=== PATIENT | female | born 1990 ===

== ENCOUNTER 2018-08-25 12:50 | Emergency (ER) | payer MEDICAID ==
--- NOTE | 2018-08-25 13:22 | OBHP ---
Datetime: 08/25/2018 13:14 IP Adm Impression: , intrauterine IP Chief Complaint Other: spotign with wipng Admit Comment, IP Provider: @ 31+ wks c/o vaginal spottig x 1 this mornign with wiping, dneis n ay dysuria, rugency, contptiaon, ctx, lof, vb, +Fm, fever, chills, nause, voting cp, sob OB: p0 FURNACE HAND: dnies pMH: dnies PSH: dneis FH non contiboyr MEDS: PNVS ALLERgy; PCN SHX: negaitve etoh/tobacc/drug A/P @ 31+ wks with vaign sottign -pecium exam no blood, closed, no evide of laor -UA -nst -dc after rueslts -f/u pmd as schleud and outpaitent for urine culture results - labor pruecaitn givne Pelvic Type - PN: Adequate Extremities - PN: Normal Abdomen - PN: Normal Back - PN: Normal Breast - PN: Not Done Lungs - PN: Normal Heart - PN: Normal Thyroid - PN: Normal Neurologic - PN: Normal HEENT - PN: Normal General - PN: Normal Presentation-Admit: Vertex FHR - Baseline A Provider: 150 Membranes, Provider: Intact Contraction Comments Provider: irritalibty Comments, ACOG Physical Exam: Speculum exa; no gorss abnormal vagian;no blood no discharge cervid; clsoed, long , psteir uteurs; nont lexy anus/perienumgrossl ynormal Gestation - Est Wks by US: 34.0 Vital Signs Provider: Reviewed IP Chief Complaint: Other NICHD Variability Prov Fetus A: Moderate 6-25bpm FHR Category Provider Fetus A: Category I NICHD Decel Fetus A IP Provider: None Dilatation, Provider: 0 Effacement, Provider: 0 Station, Provider: -3 Genitourinary Exam: Normal DTRs - PN: Normal
[2018-08-25 14:15] LABS: SQUAMOUS EPITHIAL 9 /hpf (0-5); URINE BACTERIA RARE (<OCC); URINE BILIRUBIN NEGATIVE (NEGATIVE); URINE BLOOD 1+ (NEGATIVE); URINE CLARITY Hazy (Clear); URINE COLOR Yellow (YELLOW); URINE GLUCOSE (UA) NORMAL (Normal); URINE LEUKOCYTE ESTERASE 3+ Leu/uL (Negative); URINE PROTEIN NEGATIVE (NEGATIVE); URINE UROBILINOGEN NORMAL mg/dL (0.2-1.0)
[2018-08-25] MEDS ORDERED: Lactated Ringer's 1,000 ML IV ONE (14:55)
[2018-08-25 15:19] LABS: BASO % 0.2 % (0.0-2.0); EOS # 0.1 K/uL (0.0-0.7); EOS % 0.9 % (0.0-4.0); HEMOGLOBIN 10.9 g/dL (11.0-16.0); LYMPH # 1.7 K/uL (1.0-4.3); LYMPH % 18.5 % (20.0-40.0); MEAN CELL VOLUME 89.1 fL (81.0-99.0); MEAN CORPUSCULAR HEMOGLOBIN 31.1 pg (27.0-31.0); MEAN CORPUSCULAR HGB CONC 34.9 g/dL (33.0-37.0); MEAN PLATELET VOLUME 7.4 fL (7.2-11.7); MONO # 0.9 K/uL (0.0-0.8); MONO % 9.1 % (0.0-10.0); NEUT # 6.7 K/uL (1.8-7.0); NEUT % 71.3 % (50.0-75.0); RBC 3.49 Mil/uL (3.80-5.20); RED CELL DISTRIBUTION WIDTH 13.1 % (11.5-14.5); WHITE BLOOD COUNT 9.4 K/uL (4.8-10.8)
[2018-08-25 15:32] LABS: ALB/GLOB RATIO 1.1 (1.0-2.1); ALBUMIN 3.6 g/dL (3.5-5.0); ALT/SGPT 18 U/L (9-52); AST/SGOT 20 U/L (14-36); BLOOD UREA NITROGEN 5 mg/dL (7-17); CALCIUM 9.1 mg/dl (8.6-10.4); GFR NON-AFRICAN AMERICAN > 60
[2018-08-25 15:52] LABS: PROTHROMBIN TIME 10.4 SECONDS (9.7-12.2)
[2018-08-25] MEDS ORDERED: Betamethasone Soluspan 30 mg/5mL Inj Susp IM ONE (15:55)
--- NOTE | 2018-08-25 16:30 | OBPN ---
Datetime: 08/25/2018 13:14 Membranes, Provider: Intact Contraction Comments Provider: irritalibty FHR - Baseline A Provider: 150 Gestation - Est Wks by US: 34.0 Presentation-Admit: Vertex IP Progress Note Comment: pt reexamined reports osme pressure on and off, sri any lof, reports ble eidng has stopped, +FM pt pad reexamined wiht scan blodo on pad VS as above Sepculm Exam: Vagina; no blood, Cervix; Losed, no bleeding, Uteurs; Nont lexy EMF: Cat I ALYSSA: q 2-3 min Bedsie US; offical report pending Placneta appears to be fundal, posterior no previa lba reviwerd hb 10+ Rh postiive A/P @ 31.3 wks GA with vaginal bleeding cannot r/o ptl vs placenta abupartion -pt for celeston -Plan of care discussed with MFM Dr Guadarrama reocmmend magnesium sulfate and delivery if indicated does not reocmmend transfer at this point -plan of care dw paietn vs consdiering al[facility] level [facility] hospital given risk of posisble ptl a dn risks assoicated with her. Vital Signs Provider: Reviewed FHR Category Provider Fetus A: Category I NICHD Variability Prov Fetus A: Moderate 6-25bpm Dilatation, Provider: 0 Effacement, Provider: 0 Station, Provider: -3 NICHD Decel Fetus A IP Provider: None
[2018-08-25] MEDS ORDERED: Magnesium Sulfate 4 gm/100 ml 4 GM/100 ML BAG IVPB ONE ×2 (16:34→17:00)
[2018-08-25] MEDS ORDERED: Magnesium Sulfate 20 gm 20,000 MG/500 ML BAG IV ONE (17:11)
[2018-08-25] MEDS ORDERED: Magnesium Sulfate 20 gm 20 GM/500 ML BAG IV SCH ×2 (17:30→17:32)
[2018-08-25 23:36] LABS: BASO % 0.3 % (0.0-2.0); HEMOGLOBIN 11.4 g/dL (11.0-16.0); INR 0.9; LYMPH # 1.4 K/uL (1.0-4.3); LYMPH % 9.5 % (20.0-40.0); MEAN CELL VOLUME 90.2 fL (81.0-99.0); MEAN CORPUSCULAR HEMOGLOBIN 31.8 pg (27.0-31.0); MEAN CORPUSCULAR HGB CONC 35.2 g/dL (33.0-37.0); MEAN PLATELET VOLUME 7.6 fL (7.2-11.7); MONO # 0.2 K/uL (0.0-0.8); MONO % 1.1 % (0.0-10.0); NEUT # 12.8 K/uL (1.8-7.0); NEUT % 89.1 % (50.0-75.0); NRBC % 0.1 % (0.0-2.0); PLATELET COUNT 258 K/uL (130-400); PROTHROMBIN TIME 10.2 SECONDS (9.7-12.2); RBC 3.58 Mil/uL (3.80-5.20); WHITE BLOOD COUNT 14.3 K/uL (4.8-10.8)
[2018-08-26 01:17] LABS: LYMPHOCYTE 10 % (20-40); NEUTROPHIL 90 % (50-75); PLATELET ESTIMATE NORMAL (NORMAL); TOTAL CELLS COUNTED 100
[2018-08-26] MEDS ORDERED: Magnesium Sulfate 20 gm 20 GM/500 ML BAG IV SCH (03:51)
--- NOTE | 2018-08-26 04:11 | OBPN ---
Datetime: 08/26/2018 04:05 IP Progress Plan: Continue present management Membranes, Provider: Intact Contraction Comments Provider: q 8 min FHR - Baseline A Provider: 140 Gestation - Est Wks by US: 31.4 Presentation-Admit: Vertex IP Progress Note Comment: Pt seen adn examien mahnaz rperots feelign better with intermitent back dsic omfrt dnie sany vb, lof, +FM. pt dnie sany headache, blurry vison, ruq/epigats pain but preots soem b leedign form right gum that started spotnatneoy, dneis any pain, fever, diffilcty awallign. VSS PE see aobve A/P @ 31.4 wks GA with with vb and contraction cannot r/o plt vs placnta aburiton -s/p Labs serial Hb: erviwed, fibriogne reivwe -s/p celestone -Magnesium : level 5+, contininue ins/out, neuro check -cont gume oadn efm -analgesia prn -Obtain office US report -MFM consult Vital Signs Provider: Reviewed FHR Category Provider Fetus A: Category I NICHD Variability Prov Fetus A: Moderate 6-25bpm Dilatation, Provider: 0 NICHD Decel Fetus A IP Provider: None
[2018-08-26 05:22] LABS: BASO % 0.1 % (0.0-2.0); HEMOGLOBIN 11.2 g/dL (11.0-16.0); LYMPH # 1.4 K/uL (1.0-4.3); MEAN CELL VOLUME 89.1 fL (81.0-99.0); MEAN CORPUSCULAR HEMOGLOBIN 30.8 pg (27.0-31.0); MEAN CORPUSCULAR HGB CONC 34.6 g/dL (33.0-37.0); MEAN PLATELET VOLUME 7.7 fL (7.2-11.7); MONO # 0.3 K/uL (0.0-0.8); MONO % 2.1 % (0.0-10.0); NEUT # 12.4 K/uL (1.8-7.0); NEUT % 87.8 % (50.0-75.0); RBC 3.64 Mil/uL (3.80-5.20); RED CELL DISTRIBUTION WIDTH 13.4 % (11.5-14.5); WHITE BLOOD COUNT 14.1 K/uL (4.8-10.8)
--- NOTE | 2018-08-26 08:44 | OBDCSUM ---
Datetime: 08/26/2018 08:40 Discharged to, Provider: Home Follow up at, Provider: Dr Garzon Disch Instr Activity: Normal activity Disch Instr Diet: Regular Discharge Instructions, Provider: Specific instructions as noted Discharge Time: 08/26/2018 09:00 Follow up in weeks, Provider: 1 week Disch Referrals: None Disch Activity Restrictions: No exercising; No lifting; Minimize stair-climbing; No sexual activity; Nothing in vagina - [place], tampons, douche Discharge Comment, Provider: pt adivsed to go to [facility] office [address] estelita RIVERA for second dos e of yuri hernandez pian precuaitn givne. Discharge Diagnosis Prov Other: vaginal bleeidgn resolved
[2018-08-26 13:49] VITALS: BP 98/51; PULSE 82; RESP 18; TEMP 98.2; O2SAT 99
--- NOTE | 2018-08-26 14:00 | US ---
Indication: 31 weeks vaginal bleeding r/o abruption vs previa Comparison: None available Technique: Real-time ultrasound was performed through the pelvis. Findings: There is a single living fetus in cephalic presentation. Amniotic fluid volume is within normal limits. Posterior fundal placenta the placenta is not previa. There are no adnexal masses or cysts evident. Cervix length measures approximately 4.9 cm. Measurements and calculations: Fetus has a composite sonographic age of 32 weeks 3 days. This calculation is based on the biparietal diameter, head circumference, abdominal circumference, and femur length. Estimated heart rate 144 beats per min. Estimated weight 1944 g. Amniotic fluid index: 16.96 cm Biophysical profile: movements 2/2 breathing 2/2 tone 2/2 Amniotic fluid 2/2 Total score impression: 06/26 Impression: Single living fetus with a composite sonographic age of 32 weeks 3 days. Estimated heart rate 144 beats per min. Biophysical profile of 8 out of 8. The study was performed for the emergent evaluation of vaginal bleeding, and the whole anatomic survey of the fetus was not performed. This should be performed on an outpatient elective basis as clinically warranted. Preliminary impression was provided by [facility].
== END 2018-08-26 09:26 | disposition home or self-care (01) ==
LOC: C.EROB 12:50
DX: O26.853 Spotting complicating pregnancy, third trimester (principal); Z3A.34 34 weeks gestation of pregnancy
CPT/HCPCS: 76815; 76818; 80053; 81001; 83735; 85025; 85384; 85610; 85730; 86850; 86900; 86920; 87086; 96365; 96372; 99283; J0702; J3475; J7120

== ENCOUNTER 2018-08-26 16:22 | Emergency (ER) | payer MEDICAID ==
[2018-08-26] MEDS ORDERED: Betamethasone Soluspan 30 mg/5mL Inj Susp IM ONE (16:45)
--- NOTE | 2018-08-26 17:44 | OBHP ---
Datetime: 08/26/2018 17:24 IP Adm Impression: , intrauterine ; No Active Labor; Intact Membranes IP Admit Plan: Observation/Evaluation Pelvic Type - PN: Adequate Extremities - PN: Normal Abdomen - PN: Normal Back - PN: Normal Breast - PN: Not Done Lungs - PN: Normal Heart - PN: Normal Thyroid - PN: Normal Neurologic - PN: Normal HEENT - PN: Normal General - PN: Normal FHR - Baseline A Provider: 150 Membranes, Provider: Intact Contraction Comments Provider: 0 Comments, ACOG Physical Exam: SSE exam done and no active bleeding and only a very small dark brown residual discharge and probably from previously bleeding. EGA AdmitDate IP: 31.4 Vital Signs Provider: Reviewed; Within Normal Limits IP Chief Complaint: Vaginal bleeding NICHD Variability Prov Fetus A: Moderate 6-25bpm NICHD Accel Fetus A IP Provider: 10X10 NICHD Decel Fetus A IP Provider: None Dilatation, Provider: 0 Effacement, Provider: 0 Station, Provider: high Genitourinary Exam: Normal DTRs - PN: Normal Datetime: 08/26/2018 04:05 Presentation-Admit: Vertex Gestation - Est Wks by US: 31.4 Vital Signs Provider Details: GEN NAD AA ox 3 HEENT: NC/AT, right small clost on molar, no active bleeding RESP: CTAB?l CVS RRR< +S1/S2 ABS: soft, nt, no guaridng, no reboudn tendere, nor igidty VE: no gross blood, appears closed EXT: negative quincy's sign, negative calf tenderess FHR Category Provider Fetus A: Category I Datetime: 08/25/2018 13:14 Admit Comment, IP Provider: @ 31+ wks c/o vaginal spottig x 1 this mornign with wiping, dneis n ay dysuria, rugency, contptiaon, ctx, lof, vb, +Fm, fever, chills, nause, voting cp, sob OB: p0 FINGERNAIL FORMER: dnies pMH: dnies PSH: dneis FH non contiboyr MEDS: PNVS ALLERgy; PCN SHX: negaitve etoh/tobacc/drug A/P @ 31+ wks with vaign sottign -pecium exam no blood, closed, no evide of laor -UA -nst pt was feeling better than then started contracing every 2-5 min with bright red bleeding. densi p ressure +FM Specuum exam: cervix appears closed, small amout of bright red sptotin form cervix uteurs; non tender for aburpiton labs us r/o placental abrption, previa vs ptl celelstone/magnesium
--- NOTE | 2018-08-26 21:56 | OBDCSUM ---
Datetime: 08/26/2018 18:00 Discharged to, Provider: Home Follow up at, Provider: Dr. Garzon Disch Instr Activity: Bedrest Disch Instr Diet: Regular Discharge Instructions, Provider: Routine instructions given Discharge Diagnosis, Provider: Labor Discharge Time: 08/26/2018 17:20 Follow up in weeks, Provider: 1-2 days Disch Referrals: None Contraception discussed, Prov: Yes Disch Activity Restrictions: No exercising; No lifting; Minimize stair-climbing; No sexual activity; Nothing in vagina - [place], tampons, douche Discharge Comment, Provider: 27 yo female with an IUP at 31.4 weeks and presented with c/o of vaginal bleeding and pelvic pains for a couple of hours. Pt admits to adequate FM and denies a gu sh of water. Pt was discharged earlier today after she had received IVH, One dose of Celestone and Magnesium peñaloza lfate and her bleeding had slowed down significantly. An appointment with [facility] was made for 1300 and pt left to have a Maternal Medicine US and chiara l return this PM, aroung 5 PM, for second dose of Celestone NST reactive Received second dose of Celestone Bleeding was minimal and pt was reassured. Spoke with Dr. Guadarrama [facility] who perfomed the US and a verbal report was obtained that there is nothing abnormal and no signs of bleeding noted. Pt and her aware of result of US and verbalized understanding. D/C home in Stable and Satisfactory condition Advised to increase po water intake Will follow up with Dr. Garzon in 1-2 days or as needed prior to returning to work. Discharge Diagnosis Prov Other: Vaginal Bleeding Contraception after Delivery: Undecided Datetime: 08/26/2018 17:20 Discharged to, Provider: Home Disch Instr Activity: Normal activity Disch Instr Diet: Regular Discharge Time: 08/26/2018 17:20 Disch Referrals: None
== END 2018-08-26 17:29 | disposition home or self-care (01) ==
LOC: C.EROB 16:22
DX: O26.853 Spotting complicating pregnancy, third trimester (principal); Z3A.31 31 weeks gestation of pregnancy
CPT/HCPCS: 96372; 99283; J0702

== ENCOUNTER 2018-10-08 01:00 | Emergency (ER) | payer MEDICAID ==
[2018-10-08 01:39] VITALS: BMI 23.9
--- NOTE | 2018-10-08 02:01 | OBHP ---
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 Bridget Garzon notified FHR - Baseline A Provider: 140 Membranes, Provider: Nilton EGA AdmitDate IP: 37.5 IP Chief Complaint: Uterine contractions FHR Category Provider Fetus A: Category I NICHD Decel Fetus A IP Provider: None Dilatation, Provider: FT Effacement, Provider: 50 Station, Provider: -3
[2018-10-08 06:40] VITALS: BP 108/69; PULSE 74; RESP 20; TEMP 97
== END 2018-10-08 02:15 | disposition home or self-care (01) ==
LOC: C.EROB 01:00
DX: O47.1 False labor at or after 37 completed weeks of gestation (principal); Z3A.37 37 weeks gestation of pregnancy

== ENCOUNTER 2018-10-14 13:01 | Inpatient (IN) | payer MEDICAID ==
[2018-10-14] MEDS ORDERED: Lactated Ringer's 1,000 ML IV ONE (15:21)
[2018-10-14] MEDS ORDERED: Lactated Ringer's 1,000 ML IV SCH (15:30)
[2018-10-14 16:24] LABS: BASO % 0.2 % (0.0-2.0); EOS # 0.2 K/uL (0.0-0.7); EOS % 1.7 % (0.0-4.0); HEMOGLOBIN 12.6 g/dL (11.0-16.0); LYMPH # 1.7 K/uL (1.0-4.3); LYMPH % 13.3 % (20.0-40.0); MEAN CELL VOLUME 88.1 fL (81.0-99.0); MEAN CORPUSCULAR HEMOGLOBIN 30.4 pg (27.0-31.0); MEAN CORPUSCULAR HGB CONC 34.5 g/dL (33.0-37.0); MEAN PLATELET VOLUME 9.2 fL (7.2-11.7); MONO % 8.1 % (0.0-10.0); NEUT # 9.8 K/uL (1.8-7.0); NEUT % 76.7 % (50.0-75.0); NRBC % 0.1 % (0.0-2.0); RBC 4.15 Mil/uL (3.80-5.20); RED CELL DISTRIBUTION WIDTH 13.1 % (11.5-14.5); WHITE BLOOD COUNT 12.9 K/uL (4.8-10.8)
[2018-10-14 16:38] LABS: BLOOD UREA NITROGEN 9 mg/dL (7-17); CALCIUM 9.1 mg/dl (8.6-10.4); GFR NON-AFRICAN AMERICAN > 60
[2018-10-14 16:40] LABS: SQUAMOUS EPITHIAL 4 /hpf (0-5); URINE BACTERIA RARE (<OCC); URINE BILIRUBIN NEGATIVE (NEGATIVE); URINE CLARITY Clear (Clear); URINE COLOR Yellow (YELLOW); URINE GLUCOSE (UA) NORMAL (Normal); URINE LEUKOCYTE ESTERASE TRACE Leu/uL (Negative); URINE PROTEIN NEGATIVE (NEGATIVE); URINE UROBILINOGEN NORMAL mg/dL (0.2-1.0)
[2018-10-14 16:41] LABS: URINE BLOOD TRACE-LYSED (NEGATIVE)
[2018-10-14 17:09] LABS: HEPATITIS B SURFACE AG Negative (NEGATIVE)
[2018-10-14] MEDS ORDERED: Bupivacaine HCl/FentaNYL Cit 100 ML EPI ONE (22:07)
[2018-10-15] MEDS ORDERED: Oxytocin 30 UNIT 30 UNITS/500 ML BAG IV SCH (00:30)
[2018-10-15] MEDS ORDERED: Oxytocin 30 UNIT 30 UNITS/500 ML BAG IV ONE (01:01)
[2018-10-15] MEDS: Clindamycin 600mg/50ml D5W 600 MG/50 ML VIAL IVPB SCH ×2 (02:26→08:20)
[2018-10-15] MEDS ORDERED: Bupivacaine HCl/FentaNYL Cit 100 ML EPI ONE (07:21)
--- NOTE | 2018-10-15 07:49 | OBHP ---
Datetime: 10/14/2018 15:34 IP Adm Impression: Term, intrauterine IP Admit Plan: Admit to unit; Initiate labor induction protocol Admit Comment, IP Provider: This 28 year old Female with no PMHx - instructed to come in by her ObGy n 2/2 intermittent spotting since 31wks and loss of mucous plug today. She is with EDC 10/24/18. She had 1 misscarriage in 2017. She reports intermittent vaginal spotting since 31 wks g estation. She denies any decreased movement, or loss of fluid. She does c/o mild CTX's for the past 2wks. She drinks roughly 8 8oz glasses of water per day. Last CARLOS was 2 wks ago and WNL. She als o c/o several 1mm raised papules (rash) along the dorsal surface of her b/l hands and abdomen. She st ates these appeared earlier in her and disapeared spontaneously. She denies any itching or pain. She otherwise denies any f/c, dizziness, headache, chest pain, SOB, abdominal pain, n/v, d/c, L E edema, or any additional acute complaints. PMHx- none PSHx- none Meds- PNV Allergies- PCN (rash) FamHx- Mom hx hypothyroidism, anxiety; Dad at 46yo 2/2 brain aneurysm SocHx- no tobacco, etoh, or drug use, +sexually active during ObHx: EDC 10/24/18 (based on LMP) LMP 01/08/18 GynHx: Menses onset at 14yo Periods t77acml, lasting 6d- normal flow Last PAP 2014- normal STDs- none +hx cousin with breast CA. No fam hx of ovarian/cervical cancer A_P: -admit for IOL per instruction of Dr. Garzon. -CBC, CMP, RPR, HIV, HepBsAg -NST reactive -activity as ordered -patient initially refused pitocin. Will attempt ambulation for several hrs, and is agreeable to s tart pitocin at that time if no improvement. -liquid diet Case discussed with Dr. Eris Barahona, DO, PGY3 Pelvic Type - PN: Adequate Extremities - PN: Abnormal Abdomen - PN: Normal Back - PN: Normal Breast - PN: Normal Lungs - PN: Normal Heart - PN: Normal Thyroid - PN: Normal Neurologic - PN: Normal HEENT - PN: Normal General - PN: Normal Presentation-Admit: Vertex FHR - Baseline A Provider: 150 Membranes, Provider: Intact Comments, ACOG Physical Exam: no LE edema, +abdominal stretch hinkle, mild rash on b/l hands and abdo men (faint, 1mm raised papules, minimal erythema). Fundus 39cm, cervix dilated 1.5cm Gestation - Est Wks by US: 38.4 IP Hx Assessment: The History has been Reviewed and is Current EGA AdmitDate IP: 38.4 Vital Signs Provider: Reviewed; Within Normal Limits IP Chief Complaint: Uterine contractions NICHD Variability Prov Fetus A: Moderate 6-25bpm NICHD Accel Fetus A IP Provider: 10X10 FHR Category Provider Fetus A: Category I NICHD Decel Fetus A IP Provider: Variable Dilatation, Provider: 1-2 Effacement, Provider: 50 Station, Provider: -2 Genitourinary Exam: Normal DTRs - PN: Normal
[2018-10-15] MEDS ORDERED: Penicillin G 5 Million Unit Vial IVPB ONE (09:43)
[2018-10-15] MEDS ORDERED: Oxytocin 20 units in LR 2,000 ML IV ONE (09:44)
[2018-10-15] MEDS ORDERED: Benzocaine/Menthol 20%-0.5% Topical Spray (60 ml) TOP ONE (10:00)
[2018-10-15] MEDS ORDERED: Oxycodone/Acetaminophen 5/325 mg Tab PO PRN (10:00)
[2018-10-15] MEDS ORDERED: Oxycodone/Acetaminophen 5/325 mg Tab ONE (10:22)
[2018-10-15] MEDS: Multiple Vitamins Tab PO SCH (10:24)
[2018-10-15] MEDS: Oxycodone/Acetaminophen 5/325 mg Tab PO PRN ×2 (10:24→15:35)
--- NOTE | 2018-10-15 14:01 | OBDS ---
DELIVERY PERSONNEL Delivery Doctor: Bridget Garzon MD Member Of [employer] Legislative [employer]: Britni Mendez RN Anesthesiologist: Dr Barker Operations Tech: Dr Valente MATERNAL INFORMATION Delivery Anesthesia: Epidural Medications in Delivery: Pitocin 30 ml in 500 NS, methergine 0.2 mg Estimated Blood Loss (ml): 400 Placenta Cultured: No Maternal Complications: None RN Comments: liveborn male infant 9/9, EBL 400 Provider Comments: pt was fullyd ilated adn pushing. atrumatic, spontaneou delivery of head, nuchal cord x 1 reduced. atrumatic, spontaneou delivery of anterior followed by posteror shoulder followed b y delivery of body. both oral and nasal passages of the baby were bulb suctioned. umbilcal cord was c amped and cut. baby handed to awaiting flaring machine operator. Cord blood and cord gases colelcted and sent x 2 . Spontaneous delivery of intact placenta with membarnes. fundus firm. good hemostaisis. second degre e pereinal lacerationed noted adn repaired with 2-0 and 3-0 chromic. Good hemostais, no compicatosn live male ifnat cephalic presentation ebl 400ml apgsr 9,9 LABOR SUMMARY EDC: 10/24/2018 00:00 No. Babies in Womb: 1 Attempted: No Labor Anesthesia: Epidural LABOR INFORMATION Onset of Labor: 10/15/2018 06:07 Complete Dilatation: 10/15/2018 07:24 Oxytocin: Augmentation Group B Beta Strep: Done, Result Unknown Steroids Given: Full Course; > 24 Hours before Delivery MEMBRANES Membranes Rupture Method: Spontaneous Rupture of Membranes: 10/15/2018 05:59 Length of Rupture (hrs): 2.45 Amniotic Fluid Color: Clear Amniotic Fluid Amount: Moderate Amniotic Fluid Odor: Normal STAGES OF LABOR Stage 1 hrs: 1 Stage 1 min: 17 Stage 2 hrs: 1 Stage 2 min: 2 Stage 3 hrs: 0 Stage 3 min: 3 Total Time in Labor hrs: 2 Total Time in Labor min: 22 VAGINAL DELIVERY Laceration Extension: Second Degree Laceration Type: Perineal Laceration Repair: Yes Initial Vag Sponge Count: 31 Final Vag Sponge Count: 31 Initial Vag Sharps Count: 3 Final Vag Sharps Count: 3 Sponge Count Correct: Yes Sharps Count Correct: Yes BABY A INFORMATION Infant Delivery Date/Time: 10/15/2018 08:26 Method of Delivery: Vaginal Born in Route : No : N/A Forceps: N/A Vacuum Extraction: N/A Shoulder Dystocia : No SHOULDER DYSTOCIA BABY A Delivery Date/Time: 10/15/2018 08:26 PRESENTATION/POSITION BABY A Presentation: Cephalic Cephalic Presentation: Vertex Vertex Position: Left Occipital Anterior Breech Presentation: N/A PLACENTA INFORMATION BABY A Placenta Delivery Time : 10/15/2018 08:29 Placenta Method of Delivery: Expressed Placenta Status: Delivered SCORES BABY A Heart Rate 1 min: >100 bpm Resp Effort 1 min: Good Cry Reflex Irritability 1 min: Cough or Sneeze or Pulls Away Muscle Tone 1 min: Active Motion Color 1 min: Body [place], Extremities Blue Resuscitation Effort 1 min: Tactile Stimulation SCORE 1 MIN: 9 Heart Rate 5 min: >100 bpm Resp Effort 5 min: Good Cry Reflex Irritability 5 min: Cough or Sneeze or Pulls Away Muscle Tone 5 min: Active Motion Color 5 min: Body [place], Extremities Blue Resuscitation Effort 5 min: N/A SCORE 5 MIN: 9 INFORMATION BABY A Gestational Age at Delivery: 38.5 Gestational Status: Term Infant Outcome : Liveborn Infant Condition : Stable Sex: Male IDENTIFICATION/MEDS BABY A ID Band Number: [id number] Sensor Number: [id number] WEIGHT/LENGTH BABY A Infant Birthweight (gms): 2870 Infant Weight (lb): 6 Weight (oz): 5 Length Inches: 18.50 Infant Length cms: 47.0 CORD INFORMATION BABY A No. Cord Vessels: 3 Nuchal Cord : Around Neck x1, Loose Cord Blood Taken: Yes Infant Suction: Mouth; Nose ASSESSMENT BABY A Physical Findings at Delivery: Molding of the Head Respirations: Appears Normal Steersman/ALS Called : No Care By: Davey Alcantara RN Transferred To: Remains with Mother
--- NOTE | 2018-10-15 14:05 | OBDS ---
DELIVERY PERSONNEL Delivery Doctor: Bridget Garzon MD Phlebotomy Supervisor: Britni Mendez RN Anesthesiologist: Dr Barker Home Appliance Tech: Dr Valente MATERNAL INFORMATION Delivery Anesthesia: Epidural Medications in Delivery: Pitocin 30 ml in 500 NS, methergine 0.2 mg Estimated Blood Loss (ml): 400 Placenta Cultured: No Maternal Complications: None RN Comments: liveborn male infant 9/9, EBL 400 Provider Comments: pt was fullyd ilated adn pushing. atrumatic, spontaneou delivery of head, nuchal cord x 1 reduced. atrumatic, spontaneou delivery of anterior followed by posteror shoulder followed b y delivery of body. both oral and nasal passages of the baby were bulb suctioned. umbilcal cord was c amped and cut. baby handed to awaiting complaint inspector. Cord blood and cord gases colelcted and sent x 2 . Spontaneous delivery of intact placenta with membarnes. fundus firm. good hemostaisis. second degre e pereinal lacerationed noted adn repaired with 2-0 and 3-0 chromic. Good hemostais, no compicatosn live male ifnat cephalic presentation ebl 400ml apgsr 9,9 LABOR SUMMARY EDC: 10/24/2018 00:00 EDC: 10/24/2018 00:00 No. Babies in Womb: 1 Attempted: No Labor Anesthesia: Epidural LABOR INFORMATION Onset of Labor: 10/15/2018 06:07 Complete Dilatation: 10/15/2018 07:24 Oxytocin: Augmentation Group B Beta Strep: Done, Result Unknown Steroids Given: Full Course; > 24 Hours before Delivery MEMBRANES Membranes Rupture Method: Spontaneous Rupture of Membranes: 10/15/2018 05:59 Length of Rupture (hrs): 2.45 Amniotic Fluid Color: Clear Amniotic Fluid Amount: Moderate Amniotic Fluid Odor: Normal STAGES OF LABOR Stage 1 hrs: 1 Stage 1 min: 17 Stage 2 hrs: 1 Stage 2 min: 2 Stage 3 hrs: 0 Stage 3 min: 3 Total Time in Labor hrs: 2 Total Time in Labor min: 22 VAGINAL DELIVERY Laceration Extension: Second Degree Laceration Type: Perineal Laceration Repair: Yes Initial Vag Sponge Count: 31 Final Vag Sponge Count: 31 Initial Vag Sharps Count: 3 Final Vag Sharps Count: 3 Sponge Count Correct: Yes Sharps Count Correct: Yes BABY A INFORMATION Delivery Date/Time: 10/15/2018 08:26 Method of Delivery: Vaginal Born in Route : No : N/A Forceps: N/A Vacuum Extraction: N/A Shoulder Dystocia : No SHOULDER DYSTOCIA BABY A Delivery Date/Time: 10/15/2018 08:26 PRESENTATION/POSITION BABY A Presentation: Cephalic Cephalic Presentation: Vertex Vertex Position: Left Occipital Anterior Breech Presentation: N/A PLACENTA INFORMATION BABY A Placenta Delivery Time : 10/15/2018 08:29 Placenta Method of Delivery: Expressed Placenta Status: Delivered SCORES BABY A Heart Rate 1 min: >100 bpm Resp Effort 1 min: Good Cry Reflex Irritability 1 min: Cough or Sneeze or Pulls Away Muscle Tone 1 min: Active Motion Color 1 min: Body [place], Extremities Blue Resuscitation Effort 1 min: Tactile Stimulation SCORE 1 MIN: 9 Heart Rate 5 min: >100 bpm Resp Effort 5 min: Good Cry Reflex Irritability 5 min: Cough or Sneeze or Pulls Away Muscle Tone 5 min: Active Motion Color 5 min: Body [place], Extremities Blue Resuscitation Effort 5 min: N/A SCORE 5 MIN: 9 INFANT INFORMATION BABY A Gestational Age at Delivery: 38.5 Gestational Status: Term Infant Outcome : Liveborn Infant Condition : Stable Sex: Male IDENTIFICATION/MEDS BABY A ID Band Number: [id number] Sensor Number: [id number] WEIGHT/LENGTH BABY A Birthweight (gms): 2870 Weight (lb): 6 Weight (oz): 5 Infant Length Inches: 18.50 Length cms: 47.0 CORD INFORMATION BABY A No. Cord Vessels: 3 Nuchal Cord : Around Neck x1, Loose Cord Blood Taken: Yes Infant Suction: Mouth; Nose ASSESSMENT BABY A Physical Findings at Delivery: Molding of the Head Respirations: Appears Normal Trust Evaluation Supervisor/ALS Called : No Care By: Davey Alcantara RN Transferred To: Remains with Mother
[2018-10-15] MEDS: Clindamycin 600mg/50ml NS 600 MG/50 ML BAG IVPB SCH ×2 (16:30→22:08)
[2018-10-16] MEDS: Clindamycin 600mg/50ml NS 600 MG/50 ML BAG IVPB SCH ×3 (03:38→17:02)
[2018-10-16] MEDS: Oxycodone/Acetaminophen 5/325 mg Tab PO PRN (04:45)
[2018-10-16 07:12] LABS: BASO % 0.2 % (0.0-2.0); EOS # 0.4 K/uL (0.0-0.7); EOS % 2.5 % (0.0-4.0); LYMPH % 13.6 % (20.0-40.0); MEAN CELL VOLUME 89.4 fL (81.0-99.0); MEAN CORPUSCULAR HEMOGLOBIN 30.5 pg (27.0-31.0); MEAN CORPUSCULAR HGB CONC 34.1 g/dL (33.0-37.0); MEAN PLATELET VOLUME 8.6 fL (7.2-11.7); MONO % 6.8 % (0.0-10.0); NEUT # 11.3 K/uL (1.8-7.0); NEUT % 76.9 % (50.0-75.0); RBC 3.34 Mil/uL (3.80-5.20); RED CELL DISTRIBUTION WIDTH 13.3 % (11.5-14.5); WHITE BLOOD COUNT 14.8 K/uL (4.8-10.8)
[2018-10-16 07:18] LABS: HEMOGLOBIN 10.2 g/dL (11.0-16.0)
[2018-10-16] MEDS: Simethicone 80 mg Chewtab PO PRN (10:09)
[2018-10-16] MEDS: Multiple Vitamins Tab PO SCH (10:09)
--- NOTE | 2018-10-16 22:26 | OBPPN ---
Datetime: 10/16/2018 11:20 PP Pain Prov: Within normal limits PP Nausea Prov: Denies PP Breasts Prov: Not Done PP Heart Prov: Normal PP Lungs Prov: Normal PP Abdomen/Uterus Prov: Normal PP Lochia Prov: Normal PP Vulva/Perineum Prov: Normal PP CVA Tenderness Prov: Normal PP Extremities Prov: Normal PP C/S Incision Prov: Not Applicable PP Comments Phys Exam Prov: Fundus below Umbilicus, Firm and non-tender PP Impression Prov: Normal progression PP Plan Prov: Continue present management PP Progress Note Prov: PPD # 1 S/P without complications PP H_H 10.2/29.9 / 0+ Stable and Satisfactory condition and recovery Increase po water intake Advance care Hope to Discharge home in AM IP PP Procedures: None Vital Signs Provider PP: Reviewed; Within Normal Limits
[2018-10-17] MEDS ORDERED: Diphenhydramine 1% Cream (1 oz) TOP PRN (02:08)
[2018-10-17 08:34] LABS: BASO % 0.2 % (0.0-2.0); EOS # 0.4 K/uL (0.0-0.7); EOS % 3.2 % (0.0-4.0); HEMOGLOBIN 11.2 g/dL (11.0-16.0); LYMPH # 1.8 K/uL (1.0-4.3); LYMPH % 15.5 % (20.0-40.0); MEAN CELL VOLUME 89.1 fL (81.0-99.0); MEAN CORPUSCULAR HEMOGLOBIN 30.9 pg (27.0-31.0); MEAN CORPUSCULAR HGB CONC 34.7 g/dL (33.0-37.0); MEAN PLATELET VOLUME 8.7 fL (7.2-11.7); MONO # 0.6 K/uL (0.0-0.8); NEUT # 8.8 K/uL (1.8-7.0); NEUT % 76.1 % (50.0-75.0); RBC 3.63 Mil/uL (3.80-5.20); RED CELL DISTRIBUTION WIDTH 13.3 % (11.5-14.5); WHITE BLOOD COUNT 11.6 K/uL (4.8-10.8)
[2018-10-17 08:49] VITALS: RESP 20; TEMP 97.6
[2018-10-17] MEDS: Multiple Vitamins Tab PO SCH (10:22)
[2018-10-17] MEDS: Simethicone 80 mg Chewtab PO PRN (10:22)
--- NOTE | 2018-10-17 12:37 | OBPPN ---
Datetime: 10/17/2018 12:34 PP Pain Prov: Within normal limits PP Nausea Prov: Denies PP Flatus Prov: Yes PP BM Prov: No PP Breasts Prov: Normal PP Heart Prov: Normal PP Lungs Prov: Normal PP Abdomen/Uterus Prov: Normal PP Lochia Prov: Normal PP Vulva/Perineum Prov: Normal PP CVA Tenderness Prov: Normal PP Extremities Prov: Normal PP C/S Incision Prov: Not Applicable PP Progress Prov: Normal PP Impression Prov: Normal progression PP Plan Prov: Continue present management PP Progress Note Prov: pt seen and examined and reports pain controlled with medication. pt ambulati ng, voiding, passing flatus, toerlated reguar diet, no fever, chills, nausea, vomiting. Pt deneis any dizynes, chest pain, sob. VS see above PE GEN NAD AAO x 3 RESP: CTAB/l CVS: RRR,+S1/S2 ABD: Soft, NT/ND, +BS. no guarding no rebound tenderness no rigidity FUNDU: Firm, belwo level of umbilicus, non tender VE: minimal lochia, non fousl smelling LE: negative homans sign s/p ppd #2 dc home rto 6 week precautins: if fever, heavy bleedign more than 2 pads/ hour, lightheadness, dizzynes, chest pain, sob, go to ER adn call md Vital Signs Provider PP: Reviewed; Within Normal Limits
--- NOTE | 2018-10-17 12:40 | OBDCSUM ---
Datetime: 10/17/2018 12:34 Discharged to, Provider: Home Follow up at, Provider: Dr Garzon Disch Instr Activity: Normal activity Disch Instr Diet: Regular Discharge Instructions, Provider: Routine instructions given Discharge Diagnosis, Provider: Term Delivered Discharge Time: 10/17/2018 12:34 Follow up in weeks, Provider: 6 weeks Disch Referrals: None Contraception discussed, Prov: Yes Disch Activity Restrictions: No sexual activity; Nothing in vagina - [place], tampons, douche Discharge Comment, Provider: precaution given Contraception after Delivery: Not Planning to Use
[2018-10-17] MEDS: Oxycodone/Acetaminophen 5/325 mg Tab PO PRN (15:07)
[2018-10-17 22:16] VITALS: BP 97/61; PULSE 88; O2SAT 98
== END 2018-10-17 17:30 | disposition home or self-care (01) | DRG 373 ==
LOC: C.EROB 13:01 → C.4D 15:21 → C.4M 10-15 12:20
PROVIDERS: ADMIT Obstetrics & Gynecology; ATTEND Obstetrics & Gynecology
PROC: 3E0P7VZ Introduction of Hormone into Female Reproductive, Via Natural or Artificial Opening (ICD-10-PCS; 2018-10-14)
PROC: 10E0XZZ Delivery of Products of Conception, External Approach (ICD-10-PCS; principal; 2018-10-15)
PROC: 0KQM0ZZ Repair Perineum Muscle, Open Approach (ICD-10-PCS; 2018-10-15)
DX: O26.853 Spotting complicating pregnancy, third trimester (principal); O69.81X0 Labor and delivery complicated by cord around neck, without compression, not applicable or unspecified; O70.1 Second degree perineal laceration during delivery; Z3A.38 38 weeks gestation of pregnancy; Z37.0 Single live birth